=== PATIENT | male | born 1955 | race Two or more races ===

== ENCOUNTER 2025-04-25 11:02 | Observation (INO) | payer OTHER ==
[2025-04-25 12:45] LABS: MCHC 33.5 g/dl (32.3-36.5); MEAN CELL VOLUME 93.6 fl (79.0-92.2); MEAN PLT VOLUME 9.4 fl (9.4-12.4); RDW 11.6 % (12.2-16.4)
[2025-04-25 13:51] LABS: HCV DIAGNOSTIC IN-HOUSE W/RFLX NON-REACTIVE (NONREACTIVE); HIV INTERPRETATION NEGATIVE (NEGATIVE)
[2025-04-25 13:59] LABS: GLUCOSE,RANDOM 86.0 mg/dL (74-106); TOT PROT 7.5 g/dl (6.4-8.2)
[2025-04-25 14:00] LABS: CO2 27.0 mmol/L (21-32)
[2025-04-25 14:02] LABS: ALK PHOS 108.0 U/L (40-150)
[2025-04-25 14:05] LABS: CREATININE 0.94 mg/dL (0.55-1.3); SGOT/AST 40.0 U/L (5-34); SGPT/ALT 51.0 U/L (0-55)
[2025-04-25 15:45] LABS: URINE APPEARANCE CLEAR; URINE BILIRUBIN NEGATIVE (NEGATIVE); URINE COLOR YELLOW; URINE GLUCOSE (UA) NEGATIVE (NEGATIVE); URINE KETONE NEGATIVE (NEGATIVE); URINE LEUK ESTERASE NEGATIVE (NEGATIVE); URINE NITRITE NEGATIVE (NEGATIVE); URINE PROTEIN NEGATIVE (NEGATIVE); URINE UROBILINOGEN 0.2 mg/dL (0.2-1.0)
[2025-04-25 17:46] VITALS: RESP 18
[2025-04-25 18:18] VITALS: BMI 22.6
[2025-04-25] MEDS ORDERED: ACETAMINOPHEN 325 MG TABLET (FP) PO PRN (21:41)
[2025-04-26 08:37] VITALS: TEMP 97.7
[2025-04-26 08:40] VITALS: BP 153/72; PULSE 70
[2025-04-26] MEDS: LACTATED RINGERS SOLUTION 1,000 ML/1,000 ML INFUS.BAG IV SCH (08:54)
[2025-04-26] MEDS ORDERED: PATIENT'S OWN MEDICATION (NON-FORMULARY) (Candesartan/Hydrochlorothiazid [Candesartan-Hctz PO SCH (10:00)
[2025-04-26] MEDS ORDERED: HYDROCHLOROTHIAZIDE 12.5 MG CAPSULE (FP) PO SCH ×2 (10:00)
[2025-04-26] MEDS ORDERED: VALSARTAN 160 MG TABLET PO SCH (10:00)
[2025-04-26] MEDS: VALSARTAN 160 MG TABLET PO SCH (10:08)
[2025-04-26 10:12] LABS: MCHC 32.5 g/dl (32.3-36.5); MEAN CELL VOLUME 95.4 fl (79.0-92.2); MEAN PLT VOLUME 9.6 fl (9.4-12.4); RDW 11.5 % (12.2-16.4)
[2025-04-26] MEDS: ENOXAPARIN NA (PORCINE) 40 MG/0.4 ML DISP.SYRIN SQ SCH (10:14)
[2025-04-26 10:57] LABS: GLUCOSE,RANDOM 109.0 mg/dL (74-106); TOT PROT 7.1 g/dl (6.4-8.2)
[2025-04-26 10:58] LABS: CO2 28.0 mmol/L (21-32)
[2025-04-26 11:00] LABS: ALK PHOS 94.0 U/L (40-150)
[2025-04-26 11:03] LABS: CREATININE 0.8 mg/dL (0.55-1.3); SGOT/AST 33.0 U/L (5-34); SGPT/ALT 42.0 U/L (0-55)
[2025-04-27 20:06] LABS: CYCLIC CITRULLINE PEPTIDE AB 4 units (0-19)
== END 2025-04-26 15:29 | disposition home or self-care (01) ==
LOC: JER 11:02 → JERBED 14:48 → J5S 16:52
PROVIDERS: ATTEND Internal Medicine
PROC: 3E023GC Introduction of Other Therapeutic Substance into Muscle, Percutaneous Approach (ICD-10-PCS; principal; 2025-04-25)
PROC: 3E0337Z Introduction of Electrolytic and Water Balance Substance into Peripheral Vein, Percutaneous Approach (ICD-10-PCS; 2025-04-25)
DX: E16.2 Hypoglycemia, unspecified (principal); G89.29 Other chronic pain; I10 Essential (primary) hypertension; M54.9 Dorsalgia, unspecified; Z90.49 Acquired absence of other specified parts of digestive tract
CPT/HCPCS: 36415; 71045-TC-FY; 80053; 81003; 82533; 82947; 82962; 83036; 83735; 84100; 84305; 84439; 84443; 84484; 85025; 86200; 86803; 87086; 87389; 93005; 93010; 96360; 96372; 97116-GP; 97161-GP; 99285-25; G0378